=== PATIENT | male | born 1960 | race Caucasian/White ===

== ENCOUNTER → 2020-01-19 16:16 | Outpatient (CLI) | payer BC, MEDICAID ==
[2020-01-19 17:21] LABS: BASOPHILS 1.7 % (0-2); EOSINOPHILS 1.9 % (0-7); HEMATOCRIT 37.9 % (42.0-54.0); HEMOGLOBIN 11.8 g/dL (13.5-17.5); IMMATURE GRANULOCYTES 0.7 % (0-5); LYMPHOCYTES 25.6 % (15-50); MCH 30.2 pg (26.0-34.0); MCHC 31.1 g/dL (31.0-37.0); MCV 96.9 fL (80.0-100.0); MEAN PLATELET VOLUME 9.9 fL (7.4-10.4); NEUTROPHILS 55.1 % (40-80); PLATELET COUNT 389 10x3/uL (130-400); RBC 3.91 10x6/uL (4.20-6.10); RDW 20.6 % (11.5-14.5); WBC 5.7 10x3/uL (4.8-10.8)
[2020-01-19 17:39] LABS: INR 1.42 (0.85-1.17); PROTIME 17.2 SECONDS (11.6-15.0)
[2020-01-19 17:45] LABS: ALBUMIN 2.7 g/dL (3.4-5.0); ANION GAP 15.4 mmol/L (8-16); BILIRUBIN - TOTAL 0.94 mg/dL (0.2-1.3); C-REACTIVE PROTEIN 1.3 mg/dL (0.0-0.9); CALCIUM 8.8 mg/dL (8.5-10.1); CREATININE - SERUM 1.4 mg/dL (0.6-1.3); POTASSIUM - SERUM 5.4 mmol/L (3.5-5.1); PROTEIN - SERUM 6.9 g/dL (6.4-8.2)
[2020-01-19 19:29] LABS: ERYTHROCYTE SEDIMENTATION RATE 39 mm/hr (0-20)
== END | disposition home or self-care (01) ==
LOC: D.LABREF 16:16
PROVIDERS: ATTEND Family Medicine
DX: I33.0 Acute and subacute infective endocarditis (principal)